=== PATIENT | male | born 1965 | race African-American/Black ===

== ENCOUNTER 2019-08-14 11:04 | Emergency (ER) | payer OTHER ==
--- NOTE | 2019-08-14 11:18 | PDOC ---
History of Present Illness - General Stated Complaint: COUGH/SOB Time Seen by Provider: 08/14/19 11:07 History Source: Patient - History of Present Illness Timing/Duration: reports: this morning Severity: reports: moderate Past History - Past Medical History Allergies/Adverse Reactions: Allergies Allergy/AdvReac Type Severity Reaction Status Date / Time No Known Allergies Allergy Unverified 08/14/19 11:05 Home Medications: Ambulatory Orders Aspirin Coated [Ecotrin] 81 mg PO DAILY 07/31/11 Furosemide [Lasix] 40 mg PO DAILY 07/31/11 Quinapril HCl [Accupril] 20 mg PO DAILY 07/31/11 Tadalafil [Cialis] 20 mg PO DAILY 07/31/11 Budesonide/Formeterol Fumarate [SYMBICORT 160/4.5mcg -] 1 inh PO BID 03/29/15 Chlorthalidone 25 mg PO DAILY 03/29/15 Potassium Chloride [K-Dur] 10 meq PO DAILY 03/29/15 Rosuvastatin Calcium [Crestor] 5 mg PO DAILY 03/29/15 Valacyclovir HCl [Valtrex -] 500 mg PO DAILY 03/29/15 Anemia: No Asthma: Yes Cancer: No Cardiac Disorders: Yes ([place] 1993) CVA: No COPD: No CHF: No Dementia: No Diabetes: No GI Disorders: No Disorders: No HTN: Yes Hypercholesterolemia: Yes Liver Disease: No Seizures: No Thyroid Disease: No - Surgical History Abdominal Surgery: No Appendectomy: No Cardiac Surgery: No Cholecystectomy: No Lung Surgery: No Neurologic Surgery: No Orthopedic Surgery: No - Psycho Social/Smoking Cessation Hx Smoking History: Never smoked Have you smoked in the past 12 months: No Number of Cigarettes Smoked Daily: 0 Cigars Per Day: 1 Information on smoking cessation initiated: No Hx Alcohol Use: Yes Drug/Substance Use Hx: No Substance Use Type: None Hx Substance Use Treatment: No Review of Systems - Review of Systems Constitutional: Yes: Fever, Malaise Respiratory: Yes: Cough, Shortness of Breath. No: Wheezing Cardiac (ROS): No: Chest Pain *Physical Exam - Physical Exam General Appearance: Yes: Appropriately Dressed. No: Apparent Distress HEENT: positive: Normal ENT Inspection, Normal Voice. negative: Scleral Icterus (R), Scleral Icterus (L) Neck: positive: Supple Respiratory/Chest: positive: Lungs Clear, Normal Breath Sounds. negative: Respiratory Distress Cardiovascular: positive: Regular Rate, S1, S2 Integumentary: positive: Dry, Warm Neurologic: positive: Fully Oriented, Alert, Normal Mood/Affect ED Treatment Course - RADIOLOGY Radiology Studies Ordered: Category Date Time Status CHEST PA & LAT [RAD] Stat Radiology 08/14/19 11:15 Ordered Medical Decision Making - Medical Decision Making 08/14/19 11:16 53 yo male, morbidly obesed, [place], [place], here w/ sob, cough, subj fever and body aches this am. tested + for COVID and currently admitted per pt see exam Viral syndrome w/ SOB Concerned for COVID-19 given low sats and +contact -supplemental -CXR -COVID sent -will move to main for higher lvl of care Discharge - Discharge Information Problems reviewed: Yes Clinical Impression/Diagnosis: SOB (shortness of breath) - Follow up/Referral - Patient Discharge Instructions - Post Discharge Activity
--- NOTE | 2019-08-14 11:48 | PDOC ---
History of Present Illness - General Stated Complaint: COUGH/SOB Time Seen by Provider: 08/14/19 11:07 History Source: Patient Exam Limitations: No Limitations - History of Present Illness Initial Comments: 08/14/19 11:46 53y M with PMH of [place] (1993, no stents), HTN, HLD presenting to ER for dyspnea. Pt states his brother tested positive for COVID and exposed the family. Pt states symptoms developed around [place] Quan's Day and today he felt more short of breath. He denies chest pain, chills, n/v/d. His is admitted to the hospital. PMD: Maya PMH: see hpi PSH: none Meds: amlodipine, chlorthalidone, metoprolol, Crestor, Allergies: nkda Past History - Past Medical History Allergies/Adverse Reactions: Allergies Allergy/AdvReac Type Severity Reaction Status Date / Time No Known Allergies Allergy Unverified 08/14/19 11:05 Home Medications: Ambulatory Orders Chlorthalidone 25 mg PO DAILY 03/29/15 Potassium Chloride [K-Dur] 10 meq PO DAILY 03/29/15 Rosuvastatin Calcium [Crestor] 5 mg PO DAILY 03/29/15 Valacyclovir HCl [Valtrex -] 500 mg PO DAILY 03/29/15 Amlodipine Besylate [Norvasc -] 10 mg PO DAILY 08/14/19 Lisinopril [Zestril] 40 mg PO DAILY 08/14/19 Metoprolol Tartrate [Lopressor -] 50 mg PO DAILY 08/14/19 Anemia: No Asthma: Yes Cancer: No Cardiac Disorders: Yes ([place] 1993) CVA: No COPD: No CHF: No Dementia: No Diabetes: No GI Disorders: No Disorders: No HTN: Yes Hypercholesterolemia: Yes Liver Disease: No Seizures: No Thyroid Disease: No - Surgical History Abdominal Surgery: No Appendectomy: No Cardiac Surgery: No Cholecystectomy: No Lung Surgery: No Neurologic Surgery: No Orthopedic Surgery: No - Psycho Social/Smoking Cessation Hx Smoking History: Never smoked Have you smoked in the past 12 months: No Number of Cigarettes Smoked Daily: 0 Cigars Per Day: 1 Information on smoking cessation initiated: No Hx Alcohol Use: Yes Drug/Substance Use Hx: No Substance Use Type: None Hx Substance Use Treatment: No Review of Systems - Review of Systems Constitutional: Yes: Fever. No: Chills, Weakness HEENTM: No: Symptoms Reported Respiratory: Yes: See HPI Cardiac (ROS): No: Chest Pain ABD/GI: No: Symptoms Reported : No: Symptoms Reported Musculoskeletal: No: Symptoms Reported Integumentary: No: Symptoms Reported Neurological: No: Symptoms reported *Physical Exam - Vital Signs Last Vital Signs Temp Pulse Resp BP Pulse Ox 98.0 F 104 H 20 128/78 91 L 08/14/19 11:05 08/14/19 11:05 08/14/19 11:05 08/14/19 11:05 08/14/19 11:05 - Physical Exam General Appearance: Yes: Nourished, Appropriately Dressed. No: Apparent Distress HEENT: positive: EOMI, ADENIKE, Normal ENT Inspection Neck: positive: Trachea midline, Supple. negative: Lymphadenopathy (R), Lymphadenopathy (L) Respiratory/Chest: positive: Lungs Clear, Normal Breath Sounds. negative: Respiratory Distress, Accessory Muscle Use, Labored Respiration, Crackles, Rales, Rhonchi, Stridor, Wheezing Cardiovascular: positive: Regular Rhythm, Regular Rate, S1, S2. negative: E johnson, JVD, Murmur Gastrointestinal/Abdominal: positive: Normal Bowel Sounds, Soft. negative: Tender Musculoskeletal: negative: CVA Tenderness Extremity: positive: Normal Capillary Refill Integumentary: positive: Normal Color, Dry, Warm Neurologic: positive: stogy roller II-XII NML intact, Fully Oriented, Alert, Normal Mood/Affect, Normal Response, Motor Strength 5/5 ED Treatment Course - LABORATORY CBC & Chemistry Diagram: 08/14/19 11:40 08/14/19 11:40 Medical Decision Making - Medical Decision Making 08/14/19 14:27 53y M with CAD, htn, hld presenting to ER for sob. vitals tachycardia, saturating at 91%. afebrile. pt appears comfortable, speaking in full sentences. suspect covid v. acs v. pna -basic labs, cardiac labs, ekg, cxr labs also ordered by E ekg: sinus at 90bpm with 1st degree block. normal intervals. no miguel or depressions. no twi. ambulatory sat on ra 97% 08/14/19 18:08 cxr: no acute infiltrate or failure. questionable nodular changes v. vessels in R hemithorax. labs wnl. pt ambulatory saturatin on RA 97%. will dc home with covid precautions. given return precautions. does not require abx at this time. dispo: home Discharge - Discharge Information Problems reviewed: Yes Clinical Impression/Diagnosis: SOB (shortness of breath), Suspected COVID-19 virus infection Condition: Good Disposition: HOME - Admission No - Follow up/Referral Referrals: Mariella Trejo MD [Primary Care Provider] - - Patient Discharge Instructions Patient Printed Discharge Instructions: [facility]-Coronavirus Instructions, [facility]- [facility] COVID-19 Isolation Protocol Additional Instructions: You were seen in the ER for shortness of breath. You most likely have coronavirus. I recommend self quarantine. Keep yourself well hydrated and use the CPAP if you need to, especially at night. Come back to the ER if you have worsening shortness of breath. Thank you for your services. - Post Discharge Activity
--- NOTE | 2019-08-14 11:53 | PDOC ---
Attending Attestation - Resident Resident Name: Dorene Manrique - ED Attending Attestation I have performed the following: I have examined & evaluated the patient, The case was reviewed & discussed with the resident, I agree w/resident's findings & plan - HPI HPI: 08/14/19 11:51 53y M with PMH of [place] (1993, no stents), HTN, HLD presenting to ER for dyspnea. Pt states his brother tested positive for COVID and exposed the family. Pt states symptoms developed around [employer] Quan's Day and today he felt more short of breath. He denies chest pain, chills, n/v/d. His is admitted to the hospital. - Physicial Exam PE: 08/14/19 11:51 PE Gen NAD SPeaking in full sentences Not tachypneic or tachycardic well appering, obese Lungs/CV CTA bilat RRR - Medical Decision Making 08/14/19 11:52 53 yo male w/ sob will eval for atypical acs, get cxr, consider covid as etiology Plan CXR CE's EKG NSR 90 1st degree av block normal axis and intervals, earyl repol in II, no acute ischemia, 1151 Likely DC if pt maintains sat and not hypoxic <91 Pt obese and sleeps w/ cpap, likely sat 91% related to body habitus but will check cxr for pna. CXR appears clear Repeat vitals stable Trop negative. Stable for dc w/ return precautions 08/14/19 12:34 08/14/19 13:32 Discharge - Discharge Information Clinical Impression/Diagnosis: SOB (shortness of breath) - Follow up/Referral Referrals: Mariella Trejo MD [Primary Care Provider] - - Patient Discharge Instructions - Post Discharge Activity
[2019-08-14 12:07] LABS: VENOUS PC02 44.7 mmHg (38-52); VENOUS PH 7.46 (7.31-7.41)
[2019-08-14 12:08] LABS: VENOUS PO2 < 49 mmHg (28-48)
[2019-08-14 12:13] LABS: BASO % 0.3 % (0-2.0); EOS % 0.5 % (0-4.5); HEMATOCRIT 43.7 % (35.4-49); HEMOGLOBIN 14.5 GM/dL (11.7-16.9); MCH 28.6 pg (25.7-33.7); MCHC 33.1 g/dl (32.0-35.9); MEAN CELL VOLUME 86.3 fl (80-96); MONO % 12.7 % (3.8-10.2); NEUT % 61.5 % (42.8-82.8); PLATELET COUNT 323 K/MM3 (134-434); RBC 5.07 M/mm3 (4.00-5.60); RDW 14.6 % (11.9-15.9); WHITE BLOOD COUNT 6.3 K/mm3 (4.0-10.0)
[2019-08-14 12:26] VITALS: BP 151/63; PULSE 83; TEMP 98.3
[2019-08-14 12:39] LABS: ALBUMIN 3.6 g/dl (3.4-5.0); ALK PHOS 55 U/L (45-117); ANION GAP 9 MMOL/L (8-16); BILIRUBIN,TOTAL 0.7 mg/dL (0.2-1); BLOOD UREA NITROGEN 10.1 mg/dL (7-18); CALCIUM 9.1 mg/dL (8.5-10.1); CHLORIDE 102 mmol/L (98-107); CO2 28 mmol/L (21-32); CREATININE 0.9 mg/dL (0.55-1.3); GLUCOSE,RANDOM 107 mg/dL (74-106); N-TERMINAL BNP 12.4 pg/ml (5-125); POTASSIUM 3.7 mmol/L (3.5-5.1); SGOT/AST 27 U/L (15-37); SGPT/ALT 22 U/L (13-61); SODIUM 138 mmol/L (136-145); TOT PROT 7.4 g/dl (6.4-8.2)
--- NOTE | 2019-08-15 14:13 | EKG ---
Test Reason : Blood Pressure : / mmHG Vent. Rate : 090 BPM Atrial Rate : 090 BPM P-R Int : 216 ms QRS Dur : 092 ms QT Int : 354 ms P-R-T Axes : 061 -14 053 degrees QTc Int : 433 ms SINUS RHYTHM WITH 1ST DEGREE A-V BLOCK POSSIBLE LEFT ATRIAL ENLARGEMENT BORDERLINE ECG WHEN COMPARED WITH ECG OF 30-MAR-2015 09:06, NO SIGNIFICANT CHANGE WAS FOUND Confirmed by OUMOU PARSONS MD ([id number]) on 08/15/2019 2:12:39 PM Referred By: Confirmed By:OUMOU PARSONS MD
== END 2019-08-14 13:50 | disposition home or self-care (01) ==
LOC: JER 11:04
DX: R06.02 Shortness of breath (principal); Z20.828 Contact with and (suspected) exposure to other viral communicable diseases
CPT/HCPCS: 36415; 71046-TC-FY; 80053; 82550; 82553; 82803; 83880; 84484; 85025; 93005; 93010; 99285-25; U0002

== ENCOUNTER 2020-08-30 07:01 | Day surgery (SDC) | payer OTHER ==
[2020-08-30] MEDS ORDERED: LIDOCAINE HCL/PF 2% SDV 5ML VIAL ONE (08:04)
[2020-08-30] MEDS ORDERED: PROPOFOL 20 ML ONE ×3 (08:04)
[2020-08-30 08:09] VITALS: BMI 56.1
[2020-08-30 09:15] VITALS: TEMP 97.8
[2020-08-30 09:48] VITALS: BP 110/65; PULSE 71
== END 2020-08-30 10:00 | disposition home or self-care (01) ==
LOC: FASU-ENDO 07:01
PROVIDERS: ATTEND Internal Medicine Gastroenterology
PROC: 0DJD8ZZ Inspection of Lower Intestinal Tract, Via Natural or Artificial Opening Endoscopic (ICD-10-PCS; principal; 2020-08-30 08:40)
DX: Z12.11 Encounter for screening for malignant neoplasm of colon (principal); K57.30 Diverticulosis of large intestine without perforation or abscess without bleeding

== ENCOUNTER 2020-11-10 15:34 | Emergency (ER) | payer OTHER ==
[2020-11-10 15:48] VITALS: BP 141/63; PULSE 97; TEMP 98.1; BMI 52.3
[2020-11-10] MEDS ORDERED: DIPHTH,PERTUSS(ACELL),TET 0.5 ML DISP.SYRIN IM ONE ×2 (17:02→17:05)
== END 2020-11-10 17:51 | disposition home or self-care (01) ==
LOC: JERFT 15:34
PROC: 3E0234Z Introduction of Serum, Toxoid and Vaccine into Muscle, Percutaneous Approach (ICD-10-PCS; principal; 2020-11-10)
DX: S61.212A Laceration without foreign body of right middle finger without damage to nail, initial encounter (principal)
CPT/HCPCS: 90471; 90715; 99284-25

== ENCOUNTER 2020-11-21 12:16 | Emergency (ER) | payer OTHER ==
[2020-11-21 12:33] VITALS: BP 121/85; PULSE 89; TEMP 98.3; BMI 50.5
== END 2020-11-21 12:51 | disposition home or self-care (01) ==
LOC: JERFT 12:16
DX: Z48.02 Encounter for removal of sutures (principal)
CPT/HCPCS: 99281-25

== ENCOUNTER 2020-12-14 09:26 | Emergency (ER) | payer OTHER ==
[2020-12-14 09:57] VITALS: TEMP 97.9; BMI 49.8
[2020-12-14] MEDS ORDERED: DEXAMETHASONE LIQUID 0.5 MG/5 ML PO ONE (10:10)
[2020-12-14] MEDS ORDERED: LIDOCAINE VISCOUS 2% ORAL/TOP 15 ML UNIT-DOSE CUP MM ONE (10:12)
[2020-12-14] MEDS ORDERED: LIDOCAINE VISCOUS 2% ORAL/TOP 15 ML UNIT-DOSE CUP ONE (10:21)
[2020-12-14] MEDS ORDERED: DEXAMETHASONE SOD PHOSPHATE 10 MG/1 ML VIAL ONE (10:21)
[2020-12-14 15:55] VITALS: BP 120/78; PULSE 72
== END 2020-12-14 15:30 | disposition home or self-care (01) ==
LOC: JER 09:26
DX: R22.1 Localized swelling, mass and lump, neck (principal); T78.40XA Allergy, unspecified, initial encounter
CPT/HCPCS: 70360-TC-FY; 70490-TC; 99284-25

== ENCOUNTER 2021-12-09 10:16 | Emergency (ER) | payer OTHER ==
[2021-12-09 10:44] VITALS: BP 173/86; PULSE 62; RESP 18; TEMP 98.7; BMI 49.3
[2021-12-09] MEDS ORDERED: IBUPROFEN 600 MG TABLET (FP) PO ONE (14:51)
[2021-12-09] MEDS ORDERED: ACETAMINOPHEN 500 MG TABLET (FP) ONE (14:51)
[2021-12-09 15:27] LABS: HEMATOCRIT 40.3 % (35.4-49); MCHC 32.2 g/dl (32.0-35.9); MEAN CELL VOLUME 90.1 fl (80-96); MEAN PLT VOLUME 8.9 fl (7.5-11.1); PLATELET COUNT 238 10^3/uL (134-434); RBC 4.47 M/mm3 (4.00-5.60); RDW 15.6 % (11.9-15.9)
[2021-12-09 15:41] LABS: CALCIUM 9.1 mg/dL (8.5-10.1)
[2021-12-09 15:42] LABS: ALBUMIN 3.7 g/dl (3.4-5.0); BLOOD UREA NITROGEN 8.9 mg/dL (7-18)
[2021-12-09 15:45] LABS: CREATININE 0.8 mg/dL (0.55-1.3)
[2021-12-09 15:46] LABS: BILIRUBIN,TOTAL 0.5 mg/dL (0.2-1)
[2021-12-09 15:47] LABS: TOT PROT 7.1 g/dl (6.4-8.2)
[2021-12-09 17:29] LABS: ANISOCYTOSIS 0; MACROCYTOSIS 0
[2021-12-09 17:30] LABS: PLATELET ESTIMATE ADEQUATE
== END 2021-12-09 15:10 | disposition home or self-care (01) ==
LOC: JER 10:16
DX: N43.3 Hydrocele, unspecified (principal)
CPT/HCPCS: 36415; 76870-TC; 80053; 85025; 99284-25